=== PATIENT | female | born 1980 | race Caucasian/White ===

== ENCOUNTER 2018-10-27 13:15 | Inpatient (IN) | payer OTHER ==
[~2018-10-27] VITALS: Ht 172.7 cm; Wt 76.2 kg
[2018-11-05] MEDS ORDERED: INTESTINEX680 M1 PO (14:55)
[2018-11-05] MEDS ORDERED: DICLOFENAC SODI75 MG PO (14:55)
== END 2018-11-05 16:09 | disposition home or self-care (01) | DRG 331 ==
LOC: O/R 11-02 06:40 → SURG 11-02 06:40 → SURH 11-02 07:00 → SURG 11-02 12:44 → SURH 11-02 13:15 → SURG 11-05 16:09
PROVIDERS: ADMIT Surgery
PROC: 07TB4ZZ Resection of Mesenteric Lymphatic, Percutaneous Endoscopic Approach (ICD-10-PCS; 2018-11-02)
PROC: 0DTH4ZZ Resection of Cecum, Percutaneous Endoscopic Approach (ICD-10-PCS; principal; 2018-11-02 07:00)
DX: C18.0 Malignant neoplasm of cecum (principal); R59.0 Localized enlarged lymph nodes; R19.4 Change in bowel habit